=== PATIENT | female | born 1995 | race Caucasian/White ===

== ENCOUNTER 2017-03-21 17:33 | Emergency (ER) | payer BC, OTHER ==
[~2017-03-21] VITALS: Wt 106.5 kg
[2017-03-21 19:04] LABS: BASOPHILS % 0.2 % (0.0-2.0); EOSINOPHILS # 0.2 10^3/ul (0.0-0.5); EOSINOPHILS % 2.5 % (0.0-7.0); HEMATOCRIT 34.1 % (37.0-47.0); HEMOGLOBIN 10.9 g/dl (12.0-16.0); LYMPHOCYTES % 24.5 % (15.0-51.0); MEAN CORPUSCULAR HEMOGLOBIN 27.9 pg (29.0-33.0); MEAN CORPUSCULAR VOLUME 87.2 fl (82.0-101.0); MEAN PLATELET VOLUME 10.4 fl (7.4-10.4); MONOCYTE # 0.7 10^3/ul (0.3-0.9); MONOCYTES % 8.1 % (0.0-11.0); NEUTROPHILS % 64.5 % (39.0-77.0); PLATELET COUNT 234 10^3/UL (140-415); RED BLOOD COUNT 3.91 10^6/ul (4.20-5.40); RED CELL DISTRIBUTION WIDTH 13.1 % (11.5-14.5); WHITE BLOOD COUNT 8.3 10^3/ul (4.8-10.8)
[2017-03-21 19:17] LABS: ADD UMIC YES; UR ASCORBIC ACID NEGATIVE (NEGATIVE); UR BILIRUBIN (Dip) NEGATIVE (NEGATIVE); UR BLOOD (Dip) NEGATIVE (NEGATIVE); UR CLARITY CLEAR (CLEAR); UR COLOR YELLOW (YELLOW); UR GLUCOSE (Dip) NEGATIVE (NEGATIVE); UR KETONES (Dip) TRACE mg/dL (NEGATIVE); UR LEUKOCYTE ESTERASE (Dip) TRACE Leu/ul (NEGATIVE); UR MUCUS MODERATE /HPF (NONE SEEN); UR NITRITE (Dip) NEGATIVE (NEGATIVE); UR RBC 1 /HPF (0-5); UR SPECIFIC GRAVITY (Dip) 1.027 (1.003-1.030); UR SQUAMOUS EPITHELIAL CELL FEW /HPF (FEW); UR TOTAL PROTEIN (Dip) NEGATIVE (NEGATIVE); UR UROBILINOGEN (Dip) NEGATIVE (NEGATIVE)
[2017-03-21 19:24] LABS: ALBUMIN 4.6 g/dl (3.3-4.9); ALBUMIN/GLOBULIN RATIO 1.31; CALCIUM 9.4 mg/dl (8.4-10.2); CREATININE 1.01 mg/dl (0.44-1.00); POTASSIUM 3.7 mmol/L (3.5-5.1); TOTAL PROTEIN 8.1 g/dl (6.1-8.1)
[2017-03-21 19:29] LABS: BILIRUBIN,INDIRECT 0.1 mg/dl (0-1.1); BILIRUBIN,TOTAL 0.1 mg/dl (0.2-1.3)
--- NOTE | 2017-03-21 19:36 | RADRPT ---
PROCEDURE: US Pelvis. CLINICAL INDICATION: Pelvic and abdominal pain TECHNIQUE: Multiple sonographic images of the pelvis were obtained utilizing a transabdominal and endovaginal technique. The images were reviewed on a PACS workstation. COMPARISON: CT abdomen and pelvis 03/21/2017 FINDINGS: Uterus: Normal in size, contour and echogenicity with no evidence for myometrial masses. Size is est imated at 10 x 4.9 x 4.4 cm. Cervix: Trace amount of fluid is demonstrated. A tiny Nabothian cyst is present Endometrium: Normal in thickness; 6.6 mm. An intrauterine device is in good position within the end ometrial cavity. Right ovary / adnexa: Normal in size estimated at 3.7 x 2.6 x 2 cm. No evidence for masses, normal blood flow on Doppler interrogation. Incidental small follicles are demonstrated. There is no evid ence of adnexal free fluid Left ovary/adnexa: Normal in size estimated at 3 x 2 x 1.7 cm. No evidence for solid masses, normal blood flow on Doppler interrogation. Cul-de-sac: No evidence of free fluid. RPTAT:HJJR IMPRESSION: 1. Intrauterine device in good position within the endometrial cavity with nonspecific trace of in the cervical canal. 2. Incidental right ovarian follicles. 3. Otherwise unremarkable exam. Physician Juany Date Time Electronically viewed and signed by Physician Juany on 03/21/2017 19:35 JR/
--- NOTE | 2017-03-21 19:40 | RADRPT ---
PROCEDURE: CT abdomen and pelvis without contrast. CLINICAL INDICATION: Abdominal pain TECHNIQUE: CT scan of the abdomen and pelvis without contrast was performed. Sagittal and coronal reformatted images were obtained from the axial source images. CTDI = 21.84 mGy; DLP = 1262.51 mGy- cm COMPARISON: Pelvic ultrasound 03/21/2017 FINDINGS: Visualized lower thorax: The lung bases are clear. There is no evidence for pleural effusion. Liver, gallbladder, pancreas and spleen: Hepatomegaly, the maximum dimension of the liver 20 cm. T here is preserved liver contour and attenuation. There is no evidence for a liver mass or ductal di latation. Tiny gallstones are present within the gallbladder without evidence of pericholecystic in flammation. No common bile duct abnormality is demonstrated. The pancreas is unremarkable. Mild s plenomegaly is present the maximum dimension of the spleen 14.5 cm. Adrenal glands and genitourinary system: The adrenal glands are normal bilaterally. The kidneys are normal and size, contour and attenuation with no evidence for masses, calculi or hydronephrosis. T he ureters are unremarkable. No urinary bladder abnormality is demonstrated. An intrauterine devic e is visible within the endometrial canal. No ovarian or adnexal masses are present. There is no e vidence of free fluid in the pelvis. Gastrointestinal system: The stomach is normal in caliber with no abnormality of significance. The small bowel is normal in caliber with no ileus, obstruction or wall thickening. The appendix and s urrounding fat are within the limits of normal. The colon shows no evidence for wall thickening or acute abnormality. There is no evidence for colitis or diverticulitis. Peritoneum, retroperitoneum, lymph nodes and vessels: The abdominal aorta is normal in caliber. The re is no evidence for atherosclerotic calcification. The inferior vena cava is unremarkable. There is no evidence for adenopathy or mass. There is no ascites. Osseous structures and musculoskeletal findings: There is no fracture, lytic or blastic lesion. No muscular abnormality or soft tissue pathology is present. RPTAT:HJJR IMPRESSION: 1. No evidence of acute intra-abdominal or intrapelvic pathology. 2. Hepatosplenomegaly. 3. Cholelithiasis without CT evidence of cholecystitis. 4. Intrauterine device within the endometrial cavity as seen on the ultrasound. Right ovarian foll icles visible on the ultrasound are not evident on CT Nakul Bonilla, Physician Date Time Electronically viewed and signed by Nakul Bonilla, Physician on 03/21/2017 19:40 JR/
[2017-03-21] MEDS ORDERED: CEPH-443 PO (20:03)
--- NOTE | 2017-03-21 20:15 | ERD ---
ER Documentation Chief Complaint Date/Time DATE: 03/21/17 TIME: 20:09 Chief Complaint RLQ ABD PAIN, ONSET SEVERAL WEEKS, NO N/V/D HPI This patient is a 21-year-old female with no significant medical history presenting to the emergency department with complaints of right suprapubic pain ongoing intermittently for 2 weeks. The patient does have an intrauterine device and this is because her pain in the past. She states she is unsure whether it is related to that. Her last menstrual cycle was 03-04-2017. Pain is 8 out of 10 on the pain scale. It is intermittent. Aggravating factors include lifting. There are no alleviating factors. The patient denies nausea, vomiting, diarrhea, fevers, or other symptoms currently. ROS All systems reviewed and are negative except as per history of present illness. Medications Home Meds Active Scripts Cephalexin* (Keflex*) 500 Mg Capsule, 500 MG PO BID for 7 Days, #14 CAP Prov:MESSI AGUILERA PA-C 03/21/17 Allergies Allergies: Coded Allergies: No Known Allergy (Unverified , 08/01/13) PMhx/Soc Medical and Surgical Hx: pt denies Medical Hx History of Surgery: Yes () Anesthesia Reaction: No Hx Neurological Disorder: No Hx Respiratory Disorders: No Hx Cardiac Disorders: No Hx Psychiatric Problems: No Hx Miscellaneous Medical Probl: No Hx Alcohol Use: No Hx Substance Use: No Hx Tobacco Use: No Smoking Status: Never smoker Physical Exam Vitals Vital Signs Date Time Temp Pulse Resp B/P Pulse Ox O2 Delivery O2 Flow Rate FiO2 03/21/17 17:35 98.7 94 17 127/67 98 Physical Exam Const: Well-developed, well-nourished female in no apparent distress. Head: Atraumatic Eyes: Normal Conjunctiva ENT: Normal External Ears, Nose and Mouth. Neck: Full range of motion..~ No meningismus. Resp: Clear to auscultation bilaterally Cardio: Regular rate and rhythm, no murmurs Abd: Soft, non tender, non distended. Normal bowel sounds. Very mild vague right-sided suprapubic tenderness on palpation. Skin: No petechiae or rashes Back: No midline or flank tenderness. No CVA tenderness. Ext: No cyanosis, or edema Neur: Awake and alert Psych: Normal Mood and Affect Result Diagram: 03/21/175 03/21/17 1845 Results 24 hrs Laboratory Tests Test 03/21/17 18:45 White Blood Count 8.310^3/ul Red Blood Count 3.9110^6/ul Hemoglobin 10.9g/dl Hematocrit 34.1% Mean Corpuscular Volume 87.2fl Mean Corpuscular Hemoglobin 27.9pg Mean Corpuscular Hemoglobin Concent 32.0g/dl Red Cell Distribution Width 13.1% Platelet Count 71565^3/UL Mean Platelet Volume 10.4fl Neutrophils % 64.5% Lymphocytes % 24.5% Monocytes % 8.1% Eosinophils % 2.5% Basophils % 0.2% Nucleated Red Blood Cells % 0.0/100WBC Neutrophils # (Manual) 510^3/ul Lymphocytes # 2.010^3/ul Monocytes # 0.710^3/ul Eosinophils # 0.210^3/ul Basophils # 0.010^3/ul Nucleated Red Blood Cells # 0.010^3/ul Urine Color YELLOW Urine Clarity CLEAR Urine pH 6.0 Urine Specific Baxter 1.027 Urine Ketones TRACEmg/dL Urine Nitrite NEGATIVEmg/dL Urine Bilirubin NEGATIVEmg/dL Urine Urobilinogen NEGATIVEmg/dL Urine Leukocyte Esterase TRACELeu/ul Urine Microscopic RBC 1/HPF Urine Microscopic WBC 2/HPF Urine Squamous Epithelial Cells FEW/HPF Urine Mucus MODERATE/HPF Urine Hemoglobin NEGATIVEmg/dL Urine Glucose NEGATIVEmg/dL Urine Total Protein NEGATIVEmg/dl Sodium Level 142mmol/L Potassium Level 3.7mmol/L Chloride Level 103mmol/L Carbon Dioxide Level 26mmol/L Anion Gap 17 Blood Urea Nitrogen 12mg/dl Creatinine 1.01mg/dl Glucose Level 96mg/dl Calcium Level 9.4mg/dl Total Bilirubin 0.1mg/dl Direct Bilirubin 0.00mg/dl Indirect Bilirubin 0.1mg/dl Aspartate Amino Transf (AST/SGOT) 22IU/L Alanine Aminotransferase (ALT/SGPT) 34IU/L Alkaline Phosphatase 65IU/L Total Protein 8.1g/dl Albumin 4.6g/dl Globulin 3.50g/dl Albumin/Globulin Ratio 1.31 Lipase 97U/L Procedures/[facility] EMERGENCY DEPARTMENT COURSE / MEDICAL DECISION MAKING: This is a 21-year-old female who comes to the emergency room secondary to complaints of right suprapubic and right lower quadrant abdominal pain. The patient declined pain medication in the department. On re-evaluation, the patient was feeling improved. Lab results reviewed. CBC: Slightly anemic, at 11.0. The patient may supplement with iron as an outpatient. Chemistry: No significant acute abnormalities UA: Trace leukocytes noted but no other abnormalities. Lipase: Within normal limits. Radiology: PROCEDURE: CT abdomen and pelvis without contrast. CLINICAL INDICATION: Abdominal pain TECHNIQUE: CT scan of the abdomen and pelvis without contrast was performed. Sagittal and coronal reformatted images were obtained from the axial source images. CTDI = 21.84 mGy; DLP = 1262.51 mGy-cm COMPARISON: Pelvic ultrasound 03/21/2017 FINDINGS: Visualized lower thorax: The lung bases are clear. There is no evidence for pleural effusion. Liver, gallbladder, pancreas and spleen: Hepatomegaly, the maximum dimension of the liver 20 cm. There is preserved liver contour and attenuation. There is no evidence for a liver mass or ductal dilatation. Tiny gallstones are present within the gallbladder without evidence of pericholecystic inflammation. No common bile duct abnormality is demonstrated. The pancreas is unremarkable. Mild splenomegaly is present the maximum dimension of the spleen 14.5 cm. Adrenal glands and genitourinary system: The adrenal glands are normal bilaterally. The kidneys are normal and size, contour and attenuation with no evidence for masses, calculi or hydronephrosis. The ureters are unremarkable. No urinary bladder abnormality is demonstrated. An intrauterine device is visible within the endometrial canal. No ovarian or adnexal masses are present. There is no evidence of free fluid in the pelvis. Gastrointestinal system: The stomach is normal in caliber with no abnormality of significance. The small bowel is normal in caliber with no ileus, obstruction or wall thickening. The appendix and surrounding fat are within the limits of normal. The colon shows no evidence for wall thickening or acute abnormality. There is no evidence for colitis or diverticulitis. Peritoneum, retroperitoneum, lymph nodes and vessels: The abdominal aorta is normal in caliber. There is no evidence for atherosclerotic calcification. The inferior vena cava is unremarkable. There is no evidence for adenopathy or mass. There is no ascites. Osseous structures and musculoskeletal findings: There is no fracture, lytic or blastic lesion. No muscular abnormality or soft tissue pathology is present. RPTAT:HJJR IMPRESSION: 1. No evidence of acute intra-abdominal or intrapelvic pathology. 2. Hepatosplenomegaly. 3. Cholelithiasis without CT evidence of cholecystitis. 4. Intrauterine device within the endometrial cavity as seen on the ultrasound. Right ovarian follicles visible on the ultrasound are not evident on CT Physician Juany Date Time Electronically viewed and signed by Nakul Bonilla Physician on 03/21/2017 19:40 JR/ CC: MESSI AGUILERA PA-C PROCEDURE: US Pelvis. CLINICAL INDICATION: Pelvic and abdominal pain TECHNIQUE: Multiple sonographic images of the pelvis were obtained utilizing a transabdominal and endovaginal technique. The images were reviewed on a PACS workstation. COMPARISON: CT abdomen and pelvis 03/21/2017 FINDINGS: Uterus: Normal in size, contour and echogenicity with no evidence for myometrial masses. Size is estimated at 10 x 4.9 x 4.4 cm. Cervix: Trace amount of fluid is demonstrated. A tiny Nabothian cyst is present Endometrium: Normal in thickness; 6.6 mm. An intrauterine device is in good position within the endometrial cavity. Right ovary / adnexa: Normal in size estimated at 3.7 x 2.6 x 2 cm. No evidence for masses, normal blood flow on Doppler interrogation. Incidental small follicles are demonstrated. There is no evidence of adnexal free fluid Left ovary/adnexa: Normal in size estimated at 3 x 2 x 1.7 cm. No evidence for solid masses, normal blood flow on Doppler interrogation. Cul-de-sac: No evidence of free fluid. RPTAT:HJJR IMPRESSION: 1. Intrauterine device in good position within the endometrial cavity with nonspecific trace of in the cervical canal. 2. Incidental right ovarian follicles. 3. Otherwise unremarkable exam. The primary diagnosis is acute suprapubic pain. Secondary diagnosis is urinary tract infection I have low suspicion for appendicitis, bowel obstruction, ischemic bowel, mesenteric adenitis, mesenteric ischemia, cholecystitis, ectopic , tubo -ovarian abscess, ovarian torsion, sepsis, or other emergent conditions at this time. Discharge: I have discussed the lab results and diagnostic findings with the patient and answered any questions or concerns. The patient was discharged with a prescription for cephalexin. The patient was advised to followup with their PMD in 1-2 days and to return to the Emergency Department if there are any new or worsening symptoms. The patient understood and agreed with the diagnosis, treatment and plan. The patient is stable for discharge at this time. Departure Diagnosis: Primary Impression: Suprapubic pain, acute Additional Impression: Urinary tract infection Urinary tract infection type: site unspecified Hematuria presence: without hematuria Qualified Code: N39.0 - Urinary tract infection without hematuria, site unspecified Condition: Fair Patient Instructions: Understanding Urinary Tract Infections (UTIs) Additional Instructions: Follow up with your PCP within the next 1-3 days for a repeat evaluation. If you require a referral to a specialist, your Primary Care Provider may be able to provide this for you. In most patient cases, a referral is not required. If you have further questions regarding this matter, please ask your Primary Care Provider. Return the the emergency department immediately if symptoms worsen or change. If you have any questions regarding medications, ask your pharmacist or us before you leave. If any adverse reactions, occur while taking your medications, discontinue the treatment and return to the emergency department immediately. If any new or worsening symptoms, uncontrolled fevers, or other unexplained symptoms occur, return to the emergency department immediately. Take your medications as directed, and complete the entire course of treatment. MESSI AGUILERA PA-C Mar 21, 2017 20:15
[2017-03-21 20:24] VITALS: BP 122/62; PULSE 76; RESP 17; TEMP 98.7
== END 2017-03-21 20:25 | disposition home or self-care (01) ==
LOC: FTE 17:33
DX: R10.31 Right lower quadrant pain (principal); N39.0 Urinary tract infection, site not specified; R10.2 Pelvic and perineal pain
CPT/HCPCS: 36415; 74176; 76830; 76856; 80053; 81001; 83690; 85025; Z7502

== ENCOUNTER 2017-10-29 16:46 | Emergency (ER) | END 2017-10-29 18:17 | disposition home or self-care (01) ==

== ENCOUNTER 2018-02-14 13:42 | Emergency (ER) | END 2018-02-14 16:34 | disposition home or self-care (01) ==

== ENCOUNTER 2018-02-15 12:25 | Emergency (ER) | END 2018-02-15 16:20 | disposition home or self-care (01) ==

== ENCOUNTER 2018-11-05 09:51 | Emergency (ER) | payer OTHER ==
[~2018-11-05] VITALS: Ht 167.6 cm; Wt 108.0 kg
[~2018-11-05 09:51] MED LIST: ACET500C5 PO; CEPH-443 PO; IBUP-1542 PO; IBUP800T48 PO; MECL-77 PO; METO10TA92 PO; ONDA4TAB14 PO; ONDA8TAB14 PO
[2018-11-05 10:10] VITALS: Ht 167.6 cm; Wt 108.0 kg
--- NOTE | 2018-11-05 12:43 | ERD ---
ER Documentation Chief Complaint Chief Complaint lower abdominal pain, pink vaginal discharge on and off HPI 23-year-old female presents with complaint of lower, bilateral abdominal pain fo r the past month. In addition she states she has been noticing pink vaginal discharge on and off during this time. States the abdominal pain is intermittent. There are no alleviating or exacerbating factors. States she sexually active with one partner, having unprotected sex. She denies any nausea, vomiting, diarrhea, dysuria, hematuria, fevers, chills. Denies past medical history. Denies allergies. ROS All systems reviewed and are negative except as per history of present illness. Medications Home Meds Active Scripts Cephalexin* (Keflex*) 500 Mg Capsule, 500 MG PO BID for UTI for 7 Days, CAP Prov:MESSI KELLY 11/05/18 Metronidazole* (Flagyl*) 500 Mg Tablet, 500 MG PO BID for 7 Days, TAB Prov:MESSI KELLY 11/05/18 Acetaminophen* (Tylophen*) 500 Mg Capsule, 1 CAP PO Q6H PRN for PAIN AND OR ELEVATED TEMP, #20 CAP Prov:SYL DE LA FUENTE PA-C 02/15/18 Metoclopramide* (Reglan*) 10 Mg Tablet, 10 MG PO Q6 PRN for NAUSEA AND/OR VOMITING, #10 TAB Prov:SYL DE LA FUENTE PA-C 02/15/18 Cephalexin* (Keflex*) 500 Mg Capsule, 500 MG PO Q6 for 5 Days, #28 CAP Prov:BARON WATERS MD 02/14/18 Ondansetron (Ondansetron Odt) 8 Mg Tab.rapdis, 8 MG PO Q6H PRN for NAUSEA AND/OR VOMITING, #8 TAB Prov:BARON WATERS MD 02/14/18 Ibuprofen* (Motrin*) 600 Mg Tab, 600 MG PO Q6, #15 TAB Prov:BARON WATERS MD 02/14/18 Ondansetron (Ondansetron Odt) 4 Mg Tab.rapdis, 4 MG PO Q6H PRN for NAUSEA AND/OR VOMITING, #20 TAB Prov:BLANCHE SANTO MD 10/29/17 Meclizine Hcl* (Meclizine Hcl*) 25 Mg Tablet, 25 MG PO Q8H PRN for DIZZINESS, #20 TAB Prov:BLANCHE SANTO MD 10/29/17 Ibuprofen* (Motrin*) 800 Mg Tab, 800 MG PO Q6H PRN for PAIN AND OR ELEVATED TEMP, #30 TAB Prov:BLANCHE SANTO MD 10/29/17 Cephalexin* (Keflex*) 500 Mg Capsule, 500 MG PO BID for 7 Days, #14 CAP Prov:MESSI AGUILERA PA-C 03/21/17 Allergies Allergies: Coded Allergies: No Known Allergy (Unverified , 11/05/18) PMhx/Soc Medical and Surgical Hx: pt denies Medical Hx History of Surgery: Yes () Anesthesia Reaction: No Hx Neurological Disorder: No Hx Respiratory Disorders: No Hx Cardiac Disorders: No Hx Psychiatric Problems: No Hx Miscellaneous Medical Probl: No Hx Alcohol Use: No Hx Substance Use: No Hx Tobacco Use: No FmHx Family History: No diabetes, No coronary disease, No other Physical Exam Vitals Vital Signs Date Temp Pulse Resp B/P (MAP) Pulse Ox O2 O2 Flow FiO2 Time Delivery Rate 11/05/18 98.5 79 15 128/70 98 16:01 (89) 11/05/18 98.2 93 15 139/64 98 10:10 (89) Physical Exam Const: No acute distress Head: Atraumatic Eyes: Normal Conjunctiva ENT: Normal External Ears, Nose and Mouth. Neck: Full range of motion. No meningismus. Resp: Clear to auscultation bilaterally Cardio: Regular rate and rhythm, no murmurs Abd: Negative McBurney's. Some tenderness to palpation in the left lower quadrant. Otherwise soft, non tender, non distended. Normal bowel sounds. Patient able to jump up and down on exam. Pelvic: Perform a material spreader present. Thick clearish yellowish discharge noted. IUD in place. Cervical is nonfriable and nontender to palpation. Skin: No petechiae or rashes Back: No midline or flank tenderness Ext: No cyanosis, or edema Neur: Awake and alert Psych: Normal Mood and Affect Results 24 hrs Laboratory Tests Test 11/05/18 12:45 Urine Color YELLOW Urine Clarity CLEAR Urine pH 7.0 Urine Specific [place] 1.009 Urine Ketones NEGATIVE mg/dL Urine Nitrite NEGATIVE mg/dL Urine Bilirubin NEGATIVE mg/dL Urine Urobilinogen NEGATIVE mg/dL Urine Leukocyte Esterase TRACE Evelio/ul Urine Microscopic RBC 1 /HPF Urine Microscopic WBC 3 /HPF Urine Squamous Epithelial Cells FEW /HPF Urine Bacteria FEW /HPF Urine Hemoglobin 2+ mg/dL Urine Glucose NEGATIVE mg/dL Urine Total Protein NEGATIVE mg/dl Procedures/MDM Pelvic exam was performed with material spreader present and discharge was sent for fungal mount. Fungal mount results showed clue cells the patient will be treated with metronidazole. In addition, UA was positive for UTI so patient will be treated with Keflex. I suspect that the UTI is what is causing the abdominal pain. Patient had no McBurney's point tenderness, no fevers, no nausea, no vomiting, no diarrhea, no anorexia, no migration of pain, was able to jump up and down, therefore I have very low suspicion for appendicitis. In addition, I have low suspicion for ovarian torsion, tubo-ovarian abscess, ectopic, cholecystitis, cholelithiasis, acute abdomen, or any other emergent condition. Patient discharged with strict ER precautions. Patient advised to follow up with PMD. All questions answered at discharge. Departure Diagnosis: Primary Impression: UTI (urinary tract infection) Urinary tract infection type: site unspecified Hematuria presence: without hematuria Qualified Codes: N39.0 - Urinary tract infection, site not specified Additional Impressions: Bacterial vaginosis Abdominal pain Abdominal location: lower abdomen, unspecified Qualified Codes: R10.30 - Lower abdominal pain, unspecified Condition: Stable MESSI KELLY Nov 05, 2018 12:43
[2018-11-05] MEDS ORDERED: METR500T PO (15:49)
[2018-11-05] MEDS ORDERED: CEPH-443 PO (15:49)
[2018-11-05 16:01] VITALS: BP 128/70; PULSE 79; RESP 15
== END 2018-11-05 16:03 | disposition home or self-care (01) ==
LOC: FTE 09:51
DX: N39.0 Urinary tract infection, site not specified (principal); N76.0 Acute vaginitis
CPT/HCPCS: 81001; 87086; 87210; 87591; Z7502; 99284